=== PATIENT | male | born 1985 | race Caucasian/White ===

== ENCOUNTER 2018-12-14 09:33 | Outpatient (CLI) | payer OTHER, BC | END 2018-12-14 21:17 | disposition home or self-care (01) | LOC: SUS 09:33 | DX: J42 Unspecified chronic bronchitis (principal); R59.9 Enlarged lymph nodes, unspecified | CPT/HCPCS: 76536-TC ==

== ENCOUNTER 2018-12-30 10:10 | Outpatient (CLI) | payer OTHER, BC | END 2018-12-30 21:01 | disposition home or self-care (01) | LOC: SRD 10:10 → SUS 21:01 | DX: K29.50 Unspecified chronic gastritis without bleeding (principal) | CPT/HCPCS: 76700-TC ==

== ENCOUNTER 2019-01-02 07:23 | Outpatient (CLI) | payer OTHER, BC ==
[2019-01-02] MEDS ORDERED: DIATR MEGLU/DIATRIZ SOD 30 ML SOLUTION PO ONE (08:01)
[2019-01-02] MEDS ORDERED: IOHEXOL 100 ML IV ONE (10:03)
== END 2019-01-02 20:28 | disposition home or self-care (01) ==
LOC: SCT 07:23
DX: N28.1 Cyst of kidney, acquired (principal); K44.9 Diaphragmatic hernia without obstruction or gangrene; R22.1 Localized swelling, mass and lump, neck
CPT/HCPCS: 70491; 74177; Q9964; Q9967